=== PATIENT | female | born 1995 | race Hispanic/Latino ===

== ENCOUNTER 2021-10-13 18:57 | Emergency (ER) | payer OTHER, BC ==
[~2021-10-13] VITALS: Ht 165.1 cm; Wt 58.0 kg
[2021-10-13] MEDS ORDERED: NAPROXEN500 MG PO (22:11)
[2021-10-13 22:12] VITALS: BP 106/71
== END 2021-10-13 22:12 | disposition home or self-care (01) | DRG 552 ==
LOC: ED 18:57
DX: S16.1XXA Strain of muscle, fascia and tendon at neck level, initial encounter (principal); S29.012A Strain of muscle and tendon of back wall of thorax, initial encounter; V49.40XA Driver injured in collision with unspecified motor vehicles in traffic accident, initial encounter